=== PATIENT | male | born 1995 | race Caucasian/White ===

== ENCOUNTER 2019-04-12 00:02 | Emergency (ER) | payer SELFPAY ==
[~2019-04-12] VITALS: Ht 175.2 cm; Wt 70.3 kg
--- NOTE | ~2019-04-12 | EKG ---
[place], [place] ELECTROCARDIOGRAM REPORT NAME: REGLA BARRERA UNIT #: [id number] ROOM: DOCTOR: EPIPHANY DRAFT REPORT BIRTHDATE: [birth year] [facility] Test Date: 2019-04-12 Test Time: 00:08:49 Pat Name: REGLA BARRERA Department: Room: Gender: Tree Expert: : 1995 Requested By: MARIELLE ELLISON Order Number: [id number] Reading MD: Daniele Montoya MD Measurements Intervals [place]ert Rate: 66 P: 51 ND: 140 QRS: 87 QRSD: 104 T: 48 QT: 395 QTc: 414 Interpretive Statements Sinus rhythm Normsl ECG Electronically Signed On 04-13-2019 15:00:23 PDT by Daniele Montoya MD CM:EKGRPT:ELECTROCARDIOGRAM REPORT [id number] MARIELLE ELLISON MD EPIPHANY DRAFT REPORT MARIELLE ELLISON MD
[2019-04-12 00:27] LABS: BASO # 0.1 10*3/uL (0.0-0.1); BASO % 0.6 % (0.0-1.0); EOS # 0.3 10*3/uL (0.0-0.4); EOS % 2.8 % (1.0-4.0); HEMATOCRIT 43.4 % (42.0-52.0); HEMOGLOBIN 14.2 g/dl (14.0-18.0); LYMPH # 2.8 10*3/uL (1.3-4.4); LYMPH % 27.4 % (27.0-41.0); MEAN CELL VOLUME 94.3 fl (80.0-94.0); MEAN CORPUSCULAR HGB 30.9 pg (27.0-31.0); MEAN CORPUSCULAR HGB CONC 32.7 g/dl (33.0-37.0); MEAN PLATELET VOLUME 11.2 fl (9.6-12.3); MONO # 0.8 10*3/uL (0.1-1.0); MONO % 8.1 % (3.0-9.0); NEUT # 6.2 10*3/uL (2.3-7.9); NEUT % 60.5 % (47.0-73.0); PLATELET COUNT AUTOMATED 197 10*3/uL (130-400); RED CELL DISTRI WIDTH 13.2 % (0-14.5); WHITE BLOOD COUNT 10.3 10*3/uL (4.8-10.8)
[2019-04-12 00:39] LABS: ACT PARTIAL THROMBO TIME 24.2 SECONDS (20.0-32.1)
[2019-04-12 00:45] LABS: ALBUMIN 3.5 gm/dl (3.1-4.5); ALKALINE PHOSPHATASE 62 U/L (45-117); BUN 9 mg/dl (7-24); CHLORIDE 109 mmol/L (98-107); POTASSIUM 3.9 mmol/L (3.5-5.1); SGOT/AST 11 IU/L (3-35); SGPT/ALT 17 U/L (12-78); SODIUM 141 mmol/L (136-145); TOTAL PROTEIN 6.8 gm/dL (6.4-8.2)
[2019-04-12 00:50] LABS: TROPONIN I < 0.015 ng/ml (<0.045)
[2019-04-12] MEDS ORDERED: PEPCID20 MG PO (03:25)
[2019-04-12] MEDS ORDERED: PAIN & FEVER R325 MG PO (03:27)
[2019-04-12 03:30] VITALS: BP 106/56
[2019-04-12] MEDS ORDERED: Motrin,Rufen800 MG PO (06:43)
[2019-04-12 07:06] LABS: BILIRUBIN NEGATIVE (NEGATIVE); BLOOD NEGATIVE (NEGATIVE); CLARITY CLEAR (CLEAR); COLOR YELLOW (YELLOW); GLUCOSE NEGATIVE (NEGATIVE); KETONE NEGATIVE (NEGATIVE); LEUKO ESTERASE NEGATIVE (NEGATIVE); NITRITE NEGATIVE (NEGATIVE); PH 6.5 (5.0-9.0)
[2019-04-12 07:11] LABS: MUCOUS 1+
[2019-04-12 07:14] LABS: URINE AMPHETAMINES < 1000 (1000ng/ml); URINE BARBITURATES < 200 (200ng/ml); URINE BENZODIAZEPINES < 200 (200ng/ml); URINE CANNABINOIDS (THC) > 50 (50ng/ml); URINE COCAINE < 300 (300ng/ml); URINE METHADONE < 300 (300ng/ml); URINE OPIATES < 300 (300ng/ml)
[2019-04-12 07:16] LABS: URINE PHENCYCLIDINE < 25 (25ng/ml)
== END 2019-04-12 06:44 | disposition home or self-care (01) ==
LOC: ED 00:02
PROVIDERS: Emergency Medicine Emergency Medical Services
DX: M94.0 Chondrocostal junction syndrome [Tietze] (principal)

== ENCOUNTER 2019-10-18 15:05 | Emergency (ER) | payer OTHER ==
[~2019-10-18] VITALS: Wt 68.0 kg
[~2019-10-18 15:05] MED LIST: Motrin,Rufen800 MG PO; PAIN & FEVER R325 MG PO; PEPCID20 MG PO
[2019-10-18] MEDS ORDERED: ATHLETIC FOOT C30 GM T (15:33)
[2019-10-18 15:49] LABS: BILIRUBIN 1+ (NEGATIVE); BLOOD NEGATIVE (NEGATIVE); CLARITY CLEAR (CLEAR); COLOR YELLOW (YELLOW); GLUCOSE NEGATIVE (NEGATIVE); KETONE NEGATIVE (NEGATIVE); LEUKO ESTERASE NEGATIVE (NEGATIVE); NITRITE NEGATIVE (NEGATIVE); PH 7.5 (5.0-9.0); SPECIFIC GRAVITY 1.015 (1.005-1.030); UROBILINOGEN 0.2 E.U./dl (0.2-1.0)
[2019-10-18 15:50] LABS: BACTERIA TRACE; EPITHELIAL CELLS 0-2
== END 2019-10-18 16:29 | disposition home or self-care (01) ==
LOC: ED 15:05
PROVIDERS: Nurse Practitioner Family
DX: B35.3 Tinea pedis (principal); Z20.2 Contact with and (suspected) exposure to infections with a predominantly sexual mode of transmission

== ENCOUNTER 2020-01-13 15:11 | Emergency (ER) | payer OTHER ==
[~2020-01-13] VITALS: Ht 175.2 cm; Wt 70.3 kg
[~2020-01-13 15:11] MED LIST changes: +ATHLETIC FOOT C30 GM T
[2020-01-13 15:20] VITALS: BP 113/56
[2020-01-13] MEDS ORDERED: CEPHALEXIN500 M1 PO (15:49)
[2020-01-13] MEDS ORDERED: CLOTRIMAZOLE45 GM T (15:49)
[2020-01-14] MEDS ORDERED: SEPTDS PO (15:50)
== END 2020-01-13 16:05 | disposition home or self-care (01) ==
LOC: ED 15:11
DX: B35.3 Tinea pedis (principal); F17.200 Nicotine dependence, unspecified, uncomplicated; Z79.899 Other long term (current) drug therapy

== ENCOUNTER 2020-01-14 14:29 | Emergency (ER) | payer OTHER ==
[~2020-01-14] VITALS: Ht 175.2 cm; Wt 70.3 kg
[~2020-01-14 14:29] MED LIST changes: +CEPHALEXIN500 M1 PO; +CLOTRIMAZOLE45 GM T
[2020-01-14 14:41] VITALS: BP 122/65
[2020-01-14] MEDS ORDERED: SEPTDS PO (15:50)
== END 2020-01-14 16:23 | disposition home or self-care (01) ==
LOC: ED 14:29
DX: B35.3 Tinea pedis (principal); R56.9 Unspecified convulsions; Z79.899 Other long term (current) drug therapy